=== PATIENT | male | born 1980 | race Two or more races ===

== ENCOUNTER 2017-06-28 18:34 | Emergency (ER) | payer SELFPAY ==
[~2017-06-28] VITALS: Ht 172.7 cm; Wt 98.9 kg
[2017-06-28] MEDS ORDERED: [UNRECOGNIZED DRUG - OTHER] PO (18:48)
[2017-06-28 19:15] LABS: ADD MIUA? NO; BILIRUBIN NEGATIVE; BLOOD NEGATIVE; COLOR YELLOW ((YELLOW)); GLUCOSE (STRIP) NEGATIVE; KETONES NEGATIVE; LEUKOCYTES NEGATIVE; NITRITE NEGATIVE; PROTEIN (STRIP) NEGATIVE; SPECIFIC GRAVITY 1.021 (1.000-1.030); UCUL ADDED? NO
[2017-06-28] MEDS ORDERED: MOTRIN800 MG PO (20:56)
[2017-06-28 21:02] VITALS: BP 169/117
[2017-06-29 15:41] LABS: CHLAMYDIA TRACHOMATIS NEGATIVE; NEISSERIA GONORRHOEAE NEGATIVE
== END 2017-06-28 21:03 | disposition home or self-care (01) ==
LOC: EME 18:34 → EXP 18:34
PROVIDERS: Nurse Practitioner Family
DX: N50.811 Right testicular pain (principal); N50.89 Other specified disorders of the male genital organs; Z87.442 Personal history of urinary calculi; I10 Essential (primary) hypertension
CPT/HCPCS: 76870; 81003; 87491; 87591; 99281; 99284